=== PATIENT | female | born 1995 | race Native Hawaiian/Other Pacific Islander ===

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

== ENCOUNTER 2017-11-11 12:12 | Emergency (ER) | payer OTHER ==
[~2017-11-11] VITALS: Ht 160 cm; Wt 68.0 kg
[2017-11-11 12:23] VITALS: BP 109/62; TEMP 98
[2017-11-11 13:28] LABS: PLATELET COUNT 275 K/uL (152-353)
[2017-11-11 13:34] LABS: POTASSIUM 3.9 mmol/L (3.6-5.2)
== END 2017-11-11 14:39 | disposition home or self-care (01) ==
LOC: ED 12:12
DX: O23.591 Infection of other part of genital tract in pregnancy, first trimester (principal); Z3A.12 12 weeks gestation of pregnancy
CPT/HCPCS: 36415; 80053; 81000; 84702; 85027; 99284